=== PATIENT | male | born 1965 | race African-American/Black ===

== ENCOUNTER → 2021-04-11 | Outpatient (CLI) | payer OTHER ==
[~2021-04-11] MED LIST: KEFLEX500 MG PO; NKHM
== END | disposition home or self-care (01) ==
LOC: LAB 00:10 → COVID19 00:10
PROVIDERS: ATTEND Internal Medicine
DX: U07.1 COVID-19 (principal)

== ENCOUNTER 2023-06-08 20:08 | Emergency (ER) | payer OTHER ==
[~2023-06-08] VITALS: Ht 182.8 cm; Wt 77.1 kg
[2023-06-08] MEDS ORDERED: CEPHALEXIN500 M1 PO (20:40)
== END 2023-06-08 21:55 | disposition home or self-care (01) ==
LOC: ED 20:08
DX: S61.012A Laceration without foreign body of left thumb without damage to nail, initial encounter (principal); Z88.0 Allergy status to penicillin; Z88.1 Allergy status to other antibiotic agents; Z98.890 Other specified postprocedural states; W27.0XXA Contact with workbench tool, initial encounter; Y93.89 Activity, other specified; Y92.89 Other specified places as the place of occurrence of the external cause; Y99.8 Other external cause status

== ENCOUNTER 2024-09-13 16:10 | Emergency (ER) | payer OTHER ==
[~2024-09-13] VITALS: Ht 182.8 cm; Wt 83.9 kg
[~2024-09-13 16:10] MED LIST changes: +CEPHALEXIN500 M1 PO
[2024-09-13] MEDS ORDERED: PREDNISONE20 M1 PO (19:25)
[2024-09-13] MEDS ORDERED: methylPREDNISolone sod succ 125 MG VIAL IM ONE (19:30)
== END 2024-09-13 19:56 | disposition home or self-care (01) ==
LOC: ED 16:10
DX: M70.22 Olecranon bursitis, left elbow (principal); Z88.0 Allergy status to penicillin; Z88.1 Allergy status to other antibiotic agents; Z98.890 Other specified postprocedural states; Y93.89 Activity, other specified

== ENCOUNTER 2025-05-12 18:11 | Emergency (ER) | payer OTHER ==
[~2025-05-12] VITALS: Ht 182.8 cm; Wt 81.6 kg
[~2025-05-12 18:11] MED LIST changes: +PREDNISONE20 M1 PO
[2025-05-12] MEDS ORDERED: Bactroban Oint22 GM T (18:53)
[2025-05-12] MEDS ORDERED: VIBRAMYCIN100 MG PO (18:53)
== END 2025-05-12 18:58 | disposition home or self-care (01) ==
LOC: ED 18:11
DX: S71.102A Unspecified open wound, left thigh, initial encounter (principal); S71.101A Unspecified open wound, right thigh, initial encounter; L73.1 Pseudofolliculitis barbae; Z88.0 Allergy status to penicillin; Z88.1 Allergy status to other antibiotic agents; Z98.890 Other specified postprocedural states; X58.XXXA Exposure to other specified factors, initial encounter; Y93.89 Activity, other specified; Y92.89 Other specified places as the place of occurrence of the external cause; Y99.8 Other external cause status